=== PATIENT | male | born 1985 | race African-American/Black ===

== ENCOUNTER 2021-03-29 19:53 | Emergency (ER) | payer SELFPAY ==
[2021-03-29 20:02] VITALS: BP 155/95; PULSE 103
--- NOTE | 2021-03-29 21:27 | EDM.PDOC ---
ED HPI GENERAL MEDICAL PROBLEM - General Chief Complaint: General Stated Complaint: FEVER,SLEEPY BODY PAIN TOO MUCH TIME ON COMPUTER Time Seen by Provider: 03/29/21 20:08 Source of Information: Reports: Patient, RN Notes Reviewed - History of Present Illness INITIAL COMMENTS - FREE TEXT/NARRATIVE: fever, chills, no energy for 2 days. mild sore throat. no cough, mild joyce. - Related Data Allergies Allergy/AdvReac Type Severity Reaction Status Date / Time No Known Allergies Allergy Verified 03/29/21 20:03 Home Meds: Home Meds Penicillin V Potassium [Veetids] 500 mg PO Q6H #30 tab 03/29/21 [Rx] Past Medical History - Past Health History Medical/Surgical History: Denies Medical/Surgical History HEENT History: Reports: Impaired Vision Other HEENT History: wears eyeglasses Social & Family History - Tobacco Use Tobacco Use Status *Q: Never Tobacco User Second Hand Smoke Exposure: No - Caffeine Use Caffeine Use: Reports: Coffee, Energy Drinks, Soda - Recreational Drug Use Recreational Drug Use: No ED ROS GENERAL - Review of Systems Review Of Systems: See Below Constitutional: Reports: Fever, Chills HEENT: Reports: Throat Pain Respiratory: Denies: Cough Cardiovascular: Denies: Chest Pain Endocrine: Reports: Fatigue GI/Abdominal: Reports: Decreased Appetite. Denies: Abdominal Pain, Nausea, Vomiting Musculoskeletal: Reports: Muscle Stiffness. Denies: Neck Pain, Joint Pain Skin: Reports: No Symptoms Neurological: Reports: No Symptoms ED EXAM, GENERAL - Physical Exam Exam: See Below General Appearance: Alert, No Apparent Distress Neck: Supple Respiratory/Chest: No Respiratory Distress, Lungs Clear, Normal Breath Sounds Cardiovascular: Regular Rate, Rhythm GI/Abdominal: Soft, Non-Tender Back Exam: No: CVA Tenderness (L), CVA Tenderness (R) Extremities: Normal Inspection Neurological: Alert, Oriented, No Motor/Sensory Deficits Skin Exam: Warm, Dry, Normal Color Course - Vital Signs Last Recorded V/S: Last Vital Signs Temp 99.5 F 03/29/21 20:02 Pulse 103 H 03/29/21 20:02 Resp 20 03/29/21 20:02 BP 155/95 H 03/29/21 20:02 Pulse Ox 98 03/29/21 20:02 - Orders/Labs/Meds Labs: Laboratory Tests 0603/29/21 03/29/21 Range/Units 20:15 20:15 20:18 WBC 10.26 H (4.23-9.07) K/mm3 RBC 5.19 (4.63-6.08) M/mm3 Hgb 15.6 (13.7-17.5) gm/dl Hct 44.4 (40.1-51.0) % MCV 85.5 (79.0-92.2) fl MCH 30.1 (25.7-32.2) pg MCHC 35.1 (32.2-35.5) g/dl RDW Std Deviation 38.1 (35.1-43.9) fL Plt Count 181 (163-337) K/mm3 MPV 11.8 (9.4-12.3) fl Neut % (Auto) 85.3 H (34.0-67.9) % Lymph % (Auto) 10.0 L (21.8-53.1) % Mayes % (Auto) 4.2 L (5.3-12.2) % Eos % (Auto) 0 L (0.8-7.0) Baso % (Auto) 0.3 (0.1-1.2) % Neut # (Auto) 8.75 H (1.78-5.38) K/mm3 Lymph # (Auto) 1.03 L (1.32-3.57) K/mm3 Mayes # (Auto) 0.43 (0.30-0.82) K/mm3 Eos # (Auto) 0.00 L (0.04-0.54) K/mm3 Baso # (Auto) 0.03 (0.01-0.08) K/mm3 Manual Slide Review Abnormal smear Monoscreen Negative (NEGATIVE) SARS-CoV-2 RNA (ZAY) Negative (NEGATIVE) Group A Strep (PCR) (NOT DETECT) 03/29/21 Range/Units 20:30 WBC (4.23-9.07) K/mm3 RBC (4.63-6.08) M/mm3 Hgb (13.7-17.5) gm/dl Hct (40.1-51.0) % MCV (79.0-92.2) fl MCH (25.7-32.2) pg MCHC (32.2-35.5) g/dl RDW Std Deviation (35.1-43.9) fL Plt Count (163-337) K/mm3 MPV (9.4-12.3) fl Neut % (Auto) (34.0-67.9) % Lymph % (Auto) (21.8-53.1) % Mayes % (Auto) (5.3-12.2) % Eos % (Auto) (0.8-7.0) Baso % (Auto) (0.1-1.2) % Neut # (Auto) (1.78-5.38) K/mm3 Lymph # (Auto) (1.32-3.57) K/mm3 Mayes # (Auto) (0.30-0.82) K/mm3 Eos # (Auto) (0.04-0.54) K/mm3 Baso # (Auto) (0.01-0.08) K/mm3 Manual Slide Review Monoscreen (NEGATIVE) SARS-CoV-2 RNA (ZAY) (NEGATIVE) Group A Strep (PCR) Detected (NOT DETECT) - Re-Assessments/Exams Free Text/Narrative Re-Assessment/Exam: 03/29/21 21:30 strep screen pos., covid, mono neg. Departure - Departure Time of Disposition: 21:25 Disposition: Home, Self-Care 01 Condition: Fair Clinical Impression: Pharyngitis Qualifiers: Pharyngitis/tonsillitis etiology: streptococcus Qualified Code(s): J02.0 - Streptococcal pharyngitis - Discharge Information Prescriptions: Penicillin V Potassium [Veetids] 500 mg PO Q6H #30 tab Instructions: Pharyngitis, [id number] Referrals: PCP,None [Primary Care Provider] - Forms: ED Department Discharge Additional Instructions: Pen VK 500 mg 4 times daily for 1 week or until gone. Prescription has been sent to [facility] located at the [facility]. Drink plenty of water to maintain hydration. Tylenol or ibuprofen 3 to 4 times daily as needed. Follow up clinic if not much better within 3 to 5 days as expected. Sepsis Event Note (ED) - Evaluation Sepsis Screening Result: No Definite Risk - Focused Exam Vital Signs: Vital Signs Temp Pulse Resp BP Pulse Ox 03/29/21 20:02 99.5 F 103 H 20 155/95 H 98
== END 2021-03-29 21:34 | disposition home or self-care (01) ==
LOC: JD.ED 19:53
DX: J02.0 Streptococcal pharyngitis (principal); Z20.822 Contact with and (suspected) exposure to COVID-19
CPT/HCPCS: 36415; 85025; 86308; 87651-QW; 99283; U0002

== ENCOUNTER 2023-09-27 18:31 | Emergency (ER) | payer BC ==
[2023-09-27 22:59] VITALS: BP 138/98; PULSE 70
== END 2023-09-27 21:50 | disposition home or self-care (01) ==
LOC: JD.ED 18:31
DX: S63.502A Unspecified sprain of left wrist, initial encounter (principal); V49.40XA Driver injured in collision with unspecified motor vehicles in traffic accident, initial encounter; Y92.410 Unspecified street and highway as the place of occurrence of the external cause
CPT/HCPCS: 29125; 73110-26-LT; 73110-LT; 73200-26-LT; 73200-LT; 99283; 99284